=== PATIENT | female | born 2000 | race Hispanic/Latino ===

== ENCOUNTER 2020-01-20 12:15 | Emergency (ER) | payer OTHER, SELFPAY ==
[2020-01-20 12:51] VITALS: BP 138/82; PULSE 105; RESP 18; TEMP 36.4; O2SAT 100
--- NOTE | 2020-01-20 12:55 | ED.FEMALEGU ---
HPI - Female Genitourinary General Chief complaint: Urogenital-Female Stated complaint: abd pain/loss of appetite/vomiting/nausea Time Seen by Provider: 01/20/20 12:55 Source: patient Mode of arrival: ambulatory Limitations: no limitations History of Present Illness HPI Narrative: Brina Walden is a 19 yo female with lower abd pain that is more to R. Denies suprapubic pain but has pressure with urination. no fever, rates pain as high as 4/10, vomited x 1 this AM but thought due to hunger Related Data Allergies Allergy/AdvReac Type Severity Reaction Status Date / Time No Known Allergies Allergy Unverified 01/10/19 15:46 Review of Systems Review of Systems: Narrative: CONSTITUTIONAL: Denies fever, chills, sweats. EYES: Denies visual changes, redness, discharge. ENT: Denies rhinorrhea, congestion, sore throat, otalgia. CARDIOVASCULAR: Denies chest pain, palpitations, edema. RESPIRATORY: Denies dyspnea, wheezing, cough GASTROINTESTINAL: Denies abdominal pain, nausea, vomiting, diarrhea. GENITOURINARY: Denies dysuriabut has pressure with urination, no hematuria, abnormal discharge SKIN: Denies rash or itching. NEUROLOGIC: Denies numbness, or focal weakness. PSYCHIATRIC: Denies anxiety or depression. [facility] Family History Family History Other Heart disease Hypertension Social History Social History Smoking status: Never smoker Alcohol intake: never Comments At time of signature, I agree with nursing past medical, surgical, social and family history. There is no relevant family history pertinent to the presenting complaint. Exam Narrative: Exam Narrative: GENERAL: This is a well-nourished, well-developed patient, in no apparent distress- c/o nausea EYES:Sclera clear/white. Vision is grossly intact. EARS: External ears normal, Hearing grossly intact. NOSE: External nose normal with nasal discharge, nares without redness, has rhinorrhea. THROAT: Mucous membranes moist, NECK: Neck supple, non-tender CARDIOVASCULAR: Regular rate and rhythm without murmurs, gallops, or rubs. RESPIRATORY: Clear to auscultation. Breath sounds equal bilaterally. No wheezes, rales, or rhonchi. Occ dry cough GASTROINTESTINAL: Abdomen soft, mild tender RLQ, no rebound, no periumbilical tenderness, SKIN: warm, intact with no suspicious lesions or rash, good texture and turgor. NEURO: awake, alert, and oriented to person, place and time. There were no obvious focal neurologic abnormalities. Steady gait EXTREMITIES: Normal range of motion. BACK: Nontender without deformity Course Course Emergency Course: UA- trace leukocytes Vital Signs Vital signs: Vital Signs Temperature 97.6 F 01/20/20 12:51 Pulse Rate 105 H 01/20/20 12:51 Respiratory Rate 18 01/20/20 12:51 Blood Pressure 138/82 01/20/20 12:51 Pulse Oximetry 100 01/20/20 12:51 Temperature 97.6 F 01/20/20 12:51 Pulse Rate 105 H 01/20/20 12:51 Respiratory Rate 18 01/20/20 12:51 Blood Pressure 138/82 01/20/20 12:51 Pulse Oximetry 100 01/20/20 12:51 MDM - Female Genitourinary Differential Diagnosis Differential diagnosis: Likely urinary tract infection, cystitis, dysmenorrhea and other (ovarian cyst) Lab Data Labs: Urine Glucose Negative Reference Range: Negative Urine Bilirubin Negative Reference Range: Negative Urine Ketone Negative Reference Range: Negative Urine Specific [place] 1.020 Reference Range:1.001-1.035 Urine Blood Negative Reference Range: Negative * * Urine pH 7.0 Reference Range: 5.0-9.0 Urine Protein Negative Reference Range: Negative Urine Urobilinogen 0.2 Reference Range:
== END 2020-01-20 13:23 | disposition home or self-care (01) ==
PROVIDERS: Emergency Provider Nurse Practitioner
DX: R10.30 Lower abdominal pain, unspecified (principal); R11.0 Nausea
CPT/HCPCS: 81003; 87086; 87088; 99203; G0463

== ENCOUNTER 2021-04-17 14:20 | Emergency (ER) | payer OTHER, SELFPAY ==
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
[2021-04-17 14:32] VITALS: BP 126/75; PULSE 104; RESP 16; TEMP 37.1; O2SAT 100
== END 2021-04-17 15:49 | disposition home or self-care (01) ==
PROVIDERS: Emergency Provider Nurse Practitioner; PCP Registered Nurse
DX: R07.81 Pleurodynia (principal); F17.200 Nicotine dependence, unspecified, uncomplicated
CPT/HCPCS: 71100; 99213; G0463

== ENCOUNTER 2025-03-14 02:00 | Inpatient (IN) | payer OTHER, SELFPAY ==
[2025-03-14] VITALS (186 sets, daily range): BP systolic 70–155; BP diastolic 33–120; PULSE 67–149; RESP 13–20; TEMP 36.5–38.1; O2SAT 91–100; BMI 47.2
--- OUTSIDE RECORDS SUMMARY | 2025-03-14 02:31 | XMS_ITS | Clinical Summary ---
Author Organization [facility] Care Team Providers Care [facility] Name Role Phone Unavailable Primary Care Provider Unavailabl e Social History Tobacco Use Types Packs/Day Years Used Date Smoking Tobacco: Never Assessed Comments Unknown Sex and Gender Information Value Date Recorded Sex Assigned at Not on file Legal Sex Female 10:55 PM CDT Gender Identity Not on file Sexual Orientation Not on file Plan of Treatment Health Maintenance Due Date Last Done Comments Hepatitis C Virus (HCV) Screening 1999 Human Papillomavirus (HPV) Immunization (1 - 3-dose series) 2014 Pap Smear 2020 Influenza Immunization (#1) 2024 SARS-COV-2 Immunization ( season) 2024 03/07/2021, 02/07/2021 Respiratory Syncytial Virus (RSV) Immunization (Adult) (1 - 1-dose 75+ series) 2074 Hepatitis B Immunization Completed 000, 1999, 1999 DTaP/Tdap/Td Immunization Discontinued 2011, 02/15/2004, 12/03/2000, Additional history exists TdaP Immunization Completed 11/25/2011 Meningococcal Immunization (ACWY) Completed 09/25/2015, 11/25/2011 Pneumococcal Immunization Combined Aged Out No longer eligible based on patient's age to complete this topic Rotavirus Immunization Aged Out No lo nger eligible based on patient's age to complete this topic
--- OUTSIDE RECORDS SUMMARY | 2025-03-14 02:31 | XMS_ITS | Data Portability ---
Author Organization [facility] Address [address] [place] [address] Assessment Encounter Date Assessment Date Assessment LastModified by Organization Details LastModified Time 03/08/2025 03/08/2025 Patient is ___weeks . Discussed plan. [email or web address] Not available 03/08/2025 17:04:05 Plan of Treatment Reminders Order Date Submit Date Provider Last Modified By Organization Details Last Modified Time Details Appointments U/S OB GROWTH 2024 02:30P M ULTRASOUND Not available Not available Not available NST 2024 03:00P M NST SCHEDULE Not available Not available Not available OB ROUTINE 2024 03:30P M NICOLAS TatumM Not available Not available Not available U/S OB BPP 2024 02:30P M ULTRASOUND Not available Not available Not available NST 2024 03:00P M NST SCHEDULE Not available Not available Not available OB ROUTINE 2024 03:45P M Shantal Bonilla CNM Not available Not available Not available U/S OB BPP 2024 02:30P M ULTRASOUND Not available Not available Not available NST 2024 03:00P M NST SCHEDULE Not available Not available Not available OB ROUTINE 2024 03:30P M Shantal Bonilla CNM Not available Not available Not available Lab None recorde d. Referral None recorde d. Procedures None recorde d. Surgeries None recorde d. Imaging non-str ess test 2024 025 [address], [address], [place], [address], 03/09/2025 14:02:24 US, obstetr ic, biophys ical profile + non-str ess test 2024 [address], [address], [place], [address], 03/09/2025 18:29:56 non-str ess test 2024 [address], [address], [place], [address], 03/02/2025 12:06:15 US, [facility] ic, biophys ical profile + non-str ess test 2024 025 [address], [address], [place], [address], 03/01/2025 21:18:15 Medication Orders None recorde d. Patient TargetsNo targets recorded. Patient InstructionsNo instructions recorded. Reason for Referral None Reported. Results Created Date Observation Date Name Description Value Unit Range Abnormal Flag Note LastModifiedBy Organization Detail LastModifiedTime 03/02/2003/02/2025 CULTU RE: GROUP B STREP SCREE N, REFLE X SUSCE PTIBI LITY result report SEE RESULT S BELOW abnormal Test: Cultu re: Group B Strep , Refle x Susce ptibi lity ([facility] ) Speci men Sourc e: Vagin a/Rec humphrey Speci men Type: Vagin al/Re ctal Speci men Date: 2024 0820 Resul t Date: 2024 1429 Resul t Statu s: Final resul t Abnor mal: Yes Resul ting Lab: [facility] [address] [facility] [address] Tel: CULTU RE ----- ----- ----- --- Posit chanel for Strep tococ cus agala ctiae (Grou p B) (Abno rmal) Clind amyci n susce ptibl e, eryth romyc in resis tant. The clind amyci n induc tion test (D-t est) is negat chanel, there fore clind amyci n shoul d be clini jamil effec tive again st this isola te. Not Available [facility] (Lab) [address], [place], [address], 03/06/2025 15:33:10 02/16/20 25 02/15/2025 US, obste tric, follo w-up No observ ation record ed. [email or web address], [place], [address], 02/21/2025 06:59:54 02/16/20 25 02/15/2025 US, obste tric, follo w-up No observ ation record ed. [facility] [address], [place], [address], 02/15/2025 18:23:49 02/16/20 25 02/15/2025 US, obste tric, bioph ysica l profi le + non-s tress test No observ ation record ed. [facility] [address], [place], [address], 02/15/2025 18:23:58 02/16/20 25 02/15/2025 non-s tress test No observ ation record ed. [email or web address] [place] [address], [place], [address], 02/15/2025 21:23:02 02/16/20 25 02/15/2025 non-s tress test No observ ation record ed. [email or web address] [place] [address], [place], [address], 02/15/2025 21:26:21 02/23/20 25 02/22/2025 US, adri hope, bioph ysica l profi le + non-s tress test No observ ation record ed. [email or web address] [place] [address], [place], [address], 02/22/2025 17:25:35 02/23/20 25 02/22/2025 US, adri hope, follo w-up No observ ation record ed. [email or web address] [address], [place], [address], 02/24/2025 06:54:55 02/23/2002/22/2025 non-s tress test No observ ation record ed. [email or web address] [place] [address], [place], [address], 02/22/2025 20:10:20 02/23/20 25 02/22/2025 non-s tress test No observ ation record ed. [email or web address] [place] [address], [place], [address], 02/22/2025 22:05:22 03/01/20 25 03/01/2025 US, jad woods ysica l profi le + non-s tress test No observ ation record ed. [email or web address] [place] [address], [place], [address], 03/01/2025 18:15:10 03/01/20 25 03/01/2025 US, obste jayy, follo w-up No observ ation record ed. [email or web address] [address], [place], [address], 03/02/2025 14:48:25 03/01/20 25 03/01/2025 non-s tress test No observ ation record ed. [place] [address], [place], [address], 03/01/2025 20:36:02 03/01/20 25 03/01/2025 non-s tress test No observ ation record ed. [email or web address] [place] [address], [place], [address], 03/01/2025 20:37:36 03/08/20 25 03/09/2025 US, obste tric, bioph ysica l profi le + non-s tress test No observ ation record ed. [email or web address] [place] [address], [place], [address], 03/09/2025 11:30:02 03/08/20 25 03/08/2025 US, obste tric, bioph ysica l profi le + non-s tress test No observ ation record ed. [email or web address] [address], [place], [address], 03/09/2025 22:44:19 03/08/20 25 03/08/2025 non-s tress test No observ ation record ed. [email or web address] [place] [address], [place], [address], 03/08/2025 20:05:54 03/08/20 25 03/08/2025 non-s tress test No observ ation record ed. [email or web address] [place] [address], [place], [address], 03/08/2025 20:07:36 Result Notes None recorded. Problems Name Problem SNOMED Code Status Onset Date Resolution Date Notes Provider Name and Address Organization Details Recorded Time Syphilis test finding 779211656 Completed 201812/14/2020 Encounte r for STD screenin g;Record ed Elsewher e: No Locat ion: [facility] S ource: EHR Warranty Clerk kelvin: N Practi ce ID: 0001 Emil lable Time: 08:30:00 AM Satinder Adair MD [address], [place], [address], [facility] 1 11:33:31 Finding of pattern of menstrua l cycle 569155987 Completed 201812/14/2020 Irregula r interval between menstrua l bleeding ;Recorde d Elsewher e: No Locat ion: [facility] S ource: EHR Warranty Clerk kelvin: N Practi ce ID: 0001 Emil lable Time: 10:00:00 AM Satinder Adair MD [address], [place], [address], [facility] [address] 11:33:[address] Concept Completed 201912/14/2020 Encounte r for other contrace ptive manageme nt;Recor ded Elsewher e: No Locat ion: [facility] S ource: EHR Warranty Clerk kelvin: N Practi ce ID: 0001 Emil lable Time: 08:30:00 AM Satinder Adair MD [address], [place], [address], [facility] 1 11:33:37 Hirsutis m 320823260 Active 2018 Hirsutis m;Merleti ce ID: 0001 Not Available [facility] 0 15:11:12 Pregnanc y test negative 937730751 Completed 201812/14/2020 Encounte r for pregnanc y test, result negative ;Practic e ID: 0001 Satinder Adair MD [address], [place], [address], [facility] 1 11:33:34 Infectio n screenin g Completed 201812/14/2020 Encounte r for screenin g for oth infec/pa rastc diseases ;Recorde d Elsewher e: No Locat ion: Aleks logan [facility] S ource: EHR Warranty Clerk kelvin: N Practi ce ID: 0001 Emil lable Time: 01:45:47 PM Satinder Adair MD [address], [place], [address], [facility] 1 11:33:41 Educatio n Completed 201812/14/2020 Encounte r for other general counseli ng and advice on contrace ption;Re corded Elsewher e: No Locat ion: Alejandra ford [facility] S ource: EHR Warranty Clerk kelvin: N Practi ce ID: 0001 Emil lable Time: 08:45:00 AM Satinder Adair MD [address], [place], [address], [facility] 1 11:33:44 Pregnanc y 30406130 Active 2023 Jenn Aranda [facility] 4 12:14:32 Body mass index 40+ - severely obese 242493673 Active >40 antenata l testing weekly at [address]w[facility] 5 17:06:59 Body mass index 40+ - severely obese 484149935 Active >40 antenata l testing weekly at [facility] 5 17:06:59 Bacteria present 642975400 Active 2024 Liz Reyes [facility] 5 16:08:44 Problem Notes None recorded. Procedures Surgical History Date Name Laterality Status Provider Name and Address Organization Details Recorded Time 4 Date of Last Pap Smear completed Jenn Aranda [facility] 09/12/2024 12:11:20 3 Dilation and Curettage completed Lynn Bell [facility] 08/05/2024 14:19:20 Imaging Results None recorded. Procedure Notes None recorded. Medical Equipment None Reported. Allergies No known drug allergies Medications Name Sig Start Date Stop Date Status Note LastModified by Organization Details LastModified Time doxycycli ne hyclate 100 mg capsule 09/12 completed Not Available Not Available Not Available ibuprofen 800 mg tablet TAKE 1 TABLET BY MOUTH THREE TIMES DAILY NEEDED FOR PAIN 08/05 completed Not Available Not Available Not Available fluconazo le 150 mg tablet TAKE 1 TABLET BY MOUTH ONCE. MAY TAKE 2ND PILL 2 DAYS LATER IF SYMPTOMS PERSIST 08/05 completed Not Available Not Available Not Available fluconazo le 200 mg tablet take 1 tablet by oral route every other day x 3 doses 06/29 completed Not Available Not Available Not Available metronida zole 0.75 % (37.5 mg/5 gram) vaginal gel INSERT ONE APPLICAT ORFUL VAGINALL Y AT BEDTIME FOR 5 DAYS 04/29 completed Not Available Not Available Not Available ondansetr on HCl 4 mg tablet 06/29 completed Not Available Not Available Not Available prednison e 20 mg tablet TAKE 2 TABLETS BY MOUTH EVERY DAY FOR 5 DAYS 08/05 completed Not Available Not Available Not Available metronida zole 500 mg tablet TAKE 1 TABLET BY MOUTH TWICE A DAY FOR 7 DAYS 09/12 completed Not Available Not Available Not Available nystatin- triamcino lone 100,000 unit/gram -0.1 % topical ointment apply by topical route 2 times every day to the affected area(s) x 5 days prn 06/29 completed Not Available Not Available Not Available amoxicill in 875 mg tablet TAKE 1 TABLET BY MOUTH EVERY 12 HOURS FOR 10 DAYS 08/05 completed Not Available Not Available Not Available meclizine 25 mg tablet TAKE 1 TABLET ORAL ROUTE EVERY 8 HOURS NEEDED 02/15 completed Not Available Not Available Not Available baclofen 10 mg tablet TAKE 1 TABLET BY MOUTH THREE TIMES DAILY NEEDED 08/05 completed Not Available Not Available Not Available clotrimaz ole-betam ethasone 1 %-0.05 % topical cream APPLY TO THE AFFECTED AND SURROUND ING AREAS OF SKIN TOPICALL Y TWICE DAILY IN THE MORNING AND EVENING FOR 2 WEEKS 12/14 completed Not Available Not Available Not Available promethaz ine 25 mg tablet TAKE 1 TABLET BY MOUTH EVERY 4 HOURS 02/15 completed Not Available Not Available Not Available levofloxa torie 500 mg tablet Take 1 tablet every 24 hours by oral route for 7 days. 06/29 completed Not Available Not Available Not Available albuterol sulfate HFA 90 mcg/actua tion aerosol inhaler TAKE 1-2 (INHALAT ION) EVERY 4 HOURS NEEDED FOR WHEEZING 08/05 completed Not Available Not Available Not Available Vitamin D2 1,250 mcg (50,000 unit) capsule take 1 capsule by oral route every week 09/05 completed Prescrib rodo Prater e: No Locat ion: Alejandra ford [facility] odify By: christin rocha DateTime : 12/10/19 19 12:39:12 PM Not Available Not Available Not Available azithromy torie 500 mg tablet 09/12 completed Not Available Not Available Not Available active Not Available Not Avai lable Not Available EluRyng 0.12 mg-0.015 mg/24 hr vaginal ring insert 1 vaginal ring by vaginal route every month leave in place for 3 weeks, remove for 1 week 08/05 completed Not Available Not Available Not Available Vitals Date Recorded Body height Body mass index (BMI) Body weight Body height Body mass index (BMI) Body weight Systolic And Diastolic Systolic And Diastolic Provider Name and Address Organization Details Last Updated DateTime 5 160.02 cm 49.1 kg/m2 690113. 09 g 160.02 cm 49.1 kg/m2 581547. 09 g 117/81 mm[Hg] 117/81 mm[Hg] Liz Reyes [facility] 5 20:34:41 Date Recorded Body weight Body mass index (BMI) Body height Body height Body mass index (BMI) Body weight Systolic And Diastolic Systolic And Diastolic Provider Name and Address Organization Details Last Updated DateTime 5 233910. 58549 g 49.1 kg/m2 160.02 cm 160.02 cm 49.1 kg/m2 639559. 09 g 123/79 mm[Hg] 123/79 mm[Hg] Liz Reyes [facility] 20:04:42 Social History Question Answer Notes LastModified by Organizat ion Details LastModified Time Tobacco Smoking Status Never Smoker Kayy holland, [facility] 12/14/2020 11:20:18 If You Are , What Was Your Level Of Alcohol Consumption Prior To ? Occasional [email or web address] Information not available 03/01/2025 How Many Years Have You Consumed Alcohol? 6 [email or web address] Information not available 09/12/2024 Are You Blind Or Do You Have Difficulty Seeing? No Information n ot available 08/05/2024 What Is Your Level Of Caffeine Consumption? None Information not available 08/05/2024 How Much Tobacco Do You Chew? None Information not available 08/05/2024 In The 14 Days Before Symptom Onset, Have You Had Close Contact With A Laboratory-confirm ed COVID-19 While That Case Was Ill? No Information n ot available 08/05/2024 In The 14 Days Before Symptom Onset, Have You Had Close Contact With A Person Who Is Under Investigation For COVID-19 While That Person Was Ill? No Information not available 08/05/2024 Have You Been To An Area Known To Be High Risk For COVID-19? No Information not available 08/05/2024 Are You Deaf Or Do You Have Serious Difficulty Hearing? No Information not available 08/05/2024 What Type Of Diet Are You Following? REGULAR Information n ot available 08/05/2024 What Is The Highest Grade Or Level Of School You Have Completed Or The Highest Degree You Have Received? [id number] Information not available 08/05/2024 Are There Any Guns Present In Your Home? No Information not available 08/05/2024 Do You Use Protection During Sex? No Information not available 08/05/2024 Do You Use Your Seat Belt Or Car Seat Routinely? Yes Information not available 08/05/2024 Do You Have Smoke And Carbon Monoxide Detectors In Your Home? Yes Information not available 08/05/2024 How Much Tobacco Do You Smoke? No Information not available 08/05/2024 Do You Use Sunscreen Routinely? Yes Information not available 08/05/2024 Have You Used IV Drugs? No Information not available 08/05/2024 Do You Have Difficulty Walking Or Climbing Stairs? No [email or web address] Information not available 03/01/2025 Sex: Unknown Functional Status Question Answer Note LastModified by Organizat ion Details LastModified Time Do you use any illicit or recreational drugs? No Information not available 08/05/2024 What is your level of alcohol consumption? None Information not available 08/05/2024 Are you able to walk? YESWOREST Information not available 08/05/2024 Are you able to care for yourself? 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 No [email or web address] Information not available 03/01/2025 What is your exercise level? None Information not available 08/05/2024 Mental Status Question Answer Note LastModified by Organization D etails LastModified Time Do you feel stressed (tense, restless, nervous, or anxious, or unable to sleep at night)? [id number] [email or web address] Information not available 09/12/2024 Family History Relationship Description Onset Age of this Age Resolved Age Notes LastModified by Organization Details LastModified Time Mother Congenital heart disease [email or web address] Not available 2024 14:19:43 Mother Hypertensive disorder [email or web address] Not available 2019 10:03:20 Maternal Grandmother Congenital heart disease Not available 2024 14:19:43 Maternal Grandmother Hyperlipidem ia Not available 2024 14:19:43 Maternal Grandmother Diabetes mellitus [email or web address] Not available 2019 10:04:05 Father Congenital heart disease Not available 2024 14:19:43 Father Hyperlipidem ia [email or web address] Not available 2024 14:19:43 Maternal Grandfather Hyperlipidem ia [email or web address] Not available 2024 14:19:43 Maternal Aunt Disorder of thyroid gland [email or web address] Not available 2019 10:04:22 Medical History Condition Response Other Y Blood Transfusion N Dermatologic Disorders N Gestational Diabetes N Anxiety Disorder N Autoimmune disease N Arthritis N Polyps N Infertility N Acid Reflux (GERD) N Cancer N Varicosities N Stroke N Neurologic/Epilepsy N Fibromyalgia N Headaches N Kidney Disease N Heart Problems N Kidney or Bladder Problems N Eating Disorder N Art (IVF or FET) N Hepatitis/Liver Disease N No Past Medical History N Urinary Tract Infection N Asthma N Trauma/Violence N Thrombophilias N Allergies (Food, seasonal, environmental ) N Breast Cancer N Drug/Latex Allergies/Reactions N Lung Disease N Defects or Inherited Disease Y Breast Problem N Hematologic disorders N Anesthesia Complications N History of STI Y Deep Vein Thrombosis N Polycystic ovary syndrome N History of abnormal pap Y Endometriosis N High Cholesterol N Thyroid Problems N GI Problems N Anemia N Psychiatric Illness N Ovarian Cancer N Diabetes N Pulmonary (TB, Asthma) N Eczema N Abuse/Domestic Violence N Depression/ depression N Heart Disease N Pre-Eclampsia N Hypertension N Osteoporosis N Gynecological History Statement/Question Response Abnormal Pap Y Flow Moderate Date of Last Mammogram Date of LMP 05/27/2024 N Was last menstrual period normal Y STIs/STDs Yes HPV Vaccine Y Duration of Flow (days) 5 Current Control Method Are cycles usually normal N Date of Last Colonoscopy Frequency of Cycle (Q days) 6 Sexually Active? Y Menses Monthly N Date of DEXA bone scan Age of first menstrual cycle 9 Date of Last Pap Smear 08/05/2024 Sexual Problems? N LMP Definite N Obstetrics History GPAL:G 2 P 0 0 1 0 Type Value Spontaneous 1 Living 0 Total 2 Past Encounters Encounter ID Performer Location Encounter Start Date Encounter Closed Date Diagnosis/Indication Diagnosis SNOMED-CT Code Diagnosis ICD10 Code Diagnosis Note [id number] Satinder Adair MD [place] [place] [address] [address] 06/29/2020 10:18:34 06/29/2020 11:12:17 Vaginitis 53152003 N76.0 This patient is has signs and symptoms consistent with a yeast vulvovagin itis. We will treat with Lotrisone cream over the vulva and a Diflucan tablet. [id number] Satinder Adair MD [place] [place] [address] [place] [address] 12/14/2020 10:26:14 12/14/2020 12:44:28 Contraception care management 216450822 Z30.9 Gynecologi c examination 04004602 Z01.419 This patient is here for her annual exam. A thorough history was taken. A physical exam was performed. Age appropriat e routine health screening was ordered, performed, and discussed. Recommende d testing was ordered. She was asked to follow up in one year. She will be informed of any test results. Pap - today Additional precaution cruzito measures were taken to minimize potential exposure to the Covid-19 virus during this patient s visit, including available hand adjunct professor of english upon arrive, temperatur e check and being asked a series of screening questions. All staff wore face coverings during this encounter, as well as provided additional cleaning and sanitizing of all surfaces, including countertop s, pens, chairs, door handles, light switches, etc, prior to and following the patient s visit. [id number] Satinder Adair MD [place] [address],[place] [address] 04/18/2022 14:44:59 04/18/2022 16:47:32 Gynecologic examination 12645925 Z01.419 Annual gynecologi anali exam performed. Patient will come back in a year unless there are new symptoms. Suggest Calcium with Vitamin D if not eating in diet. Patient advised to get annual flu shot. Recommend yearly physicals and preform monthly breast exams. Genetic testing is available for patients with family history of cancer. Engage in safe sexual practices, use condoms. Encouraged to have daily exercise. Avoid tobacco and illicit drugs, moderation of alcohol. If BMI greater than 25 dietary consult advised. If you have any questions please call or email. Pap - today [id number] Cony Hogan MD [place] [place] [address],[place] [address] 04/29/2023 09:42:28 04/29/2023 10:32:34 Uncertain viability of 848821715 O36.80X9 Z3A.00 [id number] Satinder Adair MD [place] [address],[place] [address] 08/05/2024 12:13:20 08/05/2024 13:08:07 Uterine size for dates discrepancy 267759983 O26.849 Z3A.01 [id number] Satinder Adair MD [place] [address],[place] [address] 08/05/2024 13:50:07 08/05/2024 15:15:48 Nausea and vomiting 61980753 R11.2 Amenorrhea 10136815 N91. 2 this patient is a 24-year-ol d female who presents for amenorrhea . She is a positive test. Ultrasound revealed a 1st trimester gestation. Patient has no complaints . We talked about early care. Talked about genetic screening. We talked about her ultrasound results. We talked about the 12 week ultrasound that has genetic screening components . She was given recommenda tions on exercise, diet, over-the-c ounter medication s. We reviewed her obstetric history. We reviewed her medical history. We reviewed her social history. She will begin routine care at her next visit. 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 [id number] Satinder Adair MD [place] [address],[place] [address] 08/22/2024 11:40:44 08/22/2024 12:05:57 [id number] BELTRAN CISNEROS MD [place] [address],[place] [address] 08/26/2024 15:39:48 08/26/2024 16:15:46 Urinary symptoms 669601572 R39.9 [id number] BELTRAN CISNEROS MD [place] [address],[place] [address] 09/12/2024 11:41:31 09/12/2024 12:50:57 Routine care 144305436 Z34.91 screening 2437 75166 Z36.0 Genetic in vestigation procedure 02511608 Z31.430 [id number] Satinder Adair MD [place] [address],[place] [address] 09/12/2024 11:41:06 09/12/2024 12:29:25 screening 600445295 Z36.82 Z3A.11 [id number] Satinder Adair MD [place] [address],[place] [address] 09/23/2024 10:38:05 09/23/2024 15:07:30 Venereal disease screening 049831895 Z11.3 [id number] MD Grace BOJORQUEZ [address],[place] [address] 10/14/2024 11:21:57 10/14/2024 12:21:17 Routine care 404645576 Z34.91 [id number] Satinder Adair MD [place] [address],[place] [address] 11/09/2024 15:57:01 11/09/2024 17:24:00 screening for malformation 425409497 Z36.3 O99.210 Z3A.19 [id number] BELTRAN CISNEROS MD [place] [address],[place] [address] 11/09/2024 15:59:03 11/10/2024 09:45:56 Excessive growth affecting management of mother 30362753 O36.62X0 - 24 week GCT Gestation period, 19 weeks 15364276 Z3A.19 [id number] Satinder Adair MD [place] [address],[place] [address] 12/09/2024 11:30:53 12/09/2024 13:45:52 screening 992808699 Z36.2 O99.210 O43.122 Z3A.24 [id number] MD Grace BOJORQUEZ [address],[place] [address] 12/09/2024 11:31:36 12/09/2024 17:01:33 Excessive growth affecting management of mother 27870566 O36.62X0 - 28 week GCT Velamentou s insertion of umbilical cord 65150443 O43.122 - q4 week growth US Gestation period, 24 weeks 383579915 Z3A.24 [id number] MD Grace BOJORQUEZ [address] [address],[place] [address] 01/06/2025 15:19:55 01/06/2025 15:47:10 Routine care [id number] Z34.91 [id number] Satinder Adair MD [facility] [address],[place] [address] 01/17/2025 14:15:12 01/17/2025 15:11:24 Maternal obesity complicating , childbirth and the puerperium, antepartum [id number] 07 Z36.2 Z3A.29 [id number] BELTRAN CISNEROS MD [facility] [address],[place] [address] 01/17/2025 14:17:03 01/17/2025 16:14:14 Velamentous insertion of umbilical cord 68751868 O43.122 - q4 week growth US Gestation period, 29 weeks 62996984 Z3A.29 [id number] Satinder Adair MD [facility] [address],[place] [address] 01/31/2025 14:18:17 01/31/2025 15:01:50 Routine care 493786473 Z34.83 [id number] Satinder Adair MD [facility] [address],[place] [address] 1 02/15/2025 15:32:16 02/15/2025 16:32:11 Maternal obesity complicating , childbirth and the puerperium, antepartum 8879375404 07 O99.210 Z3A.33 [id number] Shantal Bonilla CNM [facility] [address],[place] [address] 02/15/2025 15:32:30 02/16/2025 09:41:14 Obesity 461760227 O99.213 [id number] Shantal Bonilla CNM [facility] [address],[place] [address] 02/15/2025 15:32:38 02/16/2025 09:43:51 Gestation period, 33 weeks 20429661 Z3A.33 [id number] Satinder Adair MD [facility] [address],[place] [address] 02/22/2025 15:30:47 02/22/2025 16:12:19 Maternal obesity complicating , childbirth and the puerperium, antepartum 2527999817 07 O99.210 Z3A.34 [id number] Shantal Bonilla [facility] [address],[place] [address] 02/22/2025 15:31:19 02/23/2025 11:02:15 Body mass index 40+ - severely obese 249705935 E66.01 [id number] Shantal Bonilla [facility] [address],[place] [address] 02/22/2025 15:31:34 02/22/2025 17:49:29 Gestation period, 34 weeks 45967309 Z3A.34 [id number] Satinder Adair MD [facility] [address],[place] [address] 03/01/2025 15:25:39 03/01/2025 16:02:49 Maternal obesity complicating , childbirth and the puerperium, antepartum 0169690309 07 O99.210 Z3A.35 [id number] Shantal Bonilla [facility] [address],[place] [address] 03/01/2025 15:29:06 03/02/2025 12:06:15 Obesity 405998108 O99.210 [id number] Shantal Bonilla [facility] [address],[place] [address] 03/01/2025 15:29:20 03/06/2025 01:06:13 Gestation period, 36 weeks 96783179 Z3A.36 [id number] Shantal Bonilla [facility] [address],[place] [address] 1 03/08/2025 15:16:54 03/09/2025 14:02:24 Obesity 263961624 O99.213 [id number] Satinder Adair MD [facility] [address],[place] [address] 03/08/2025 15:16:02 03/08/2025 16:22:02 Obesity 414822703 O99.210 Z3A.36 [id number] Shantal FordIlan Bonilla [facility] [address] [address] 03/08/2025 15:17:03 03/08/2025 17:42:27 Gestation period, 36 weeks 09250989 Z3A.36 Health Concerns Section Related Observation LastModified by Organization Detai ls LastModified Time None Recorded Concern Status LastModified by Organization Details LastModified Time None Recorded Advance Directives Directive None Recorded Payers Encounter Date Sequence Insurance Name Policy Number Policy Quiros Covered Member ID Quiros Member ID Guarantor Name 03/01/2025 1 [place] [id number] Jessica Walden [id number] Jessica Walden 03/01/2025 1 [place] [id number] Jessica Walden [id number] Jessica Walden 03/08/2025 1 [place] [id number] Jessica Walden [id number] Jessica Walden 03/08/2025 1 [place] [id number] Jessica Walden [id number] Jessica Walden 03/08/2025 1 [place] [id number] Jessica Walden [id number] Jessica Walden OBGyn Episode Ob Episode Information Episode Created Date Number of Fetuses Patient Bloodtype Patient rh Status Prepregnancy Weight lbs Domestic Partner Domestic Partner Phone Father Name [employer] Status 09/12/20 24 1 O Positive 262 OPEN Fetus Data First Name Last Name Admitted to NICU Weight (g) Sex Living Outcome Pediatric Complications Fetus ID Race Codes Race Delivery Type [id number] Problems Problem Notes Problem Name Start Date End Date Resolution Snomed Code Not e Body mass index 40+ - severely obese [id number] >40 testing weekly at 34wks Bacteria present 03/06/2025 [id number] Gilberto Calculation Initial Gilberto Date Initial Exam Date Initial Exam Provider Initial Ultrasound Date Last Menstrual Period Date Ultra Sound Weeks Gestation 03/30/2025 09/12/2024 08/22/2024 05/27/2024 9 Eighteen To Twenty Week Gilberto Update Ultra Sound Date Fundal Height At Umbil Quickening Date Ultra Sound Latest Weeks Gestation Final Gilberto Confirmed By Final Gilberto Confirmed Date Final Gilberto Date Ultra Sound Latest Days Gestation 0 [email or web address] 10/14/2024 03/30/20 25 0 Pre- Flowsheet Flowsheet Date 09/12/2024 Douglas Score Blood Edema Fundus Height Fundus Units Glucose Ketones Leukocytes Nitrite Labor Signs Protein Cervic Dilation Cervic Effacement Cervic Station Type Weight in lbs Pre/Post Dialysis Refused Weight 262.712668608288 BP Diastolic BP Location Tested BP Systolic BP Type 79 L arm 117 sitting Fetus Heart Rate Present A 164 Fetus Movement Comments Presents to establish prenat al care. Overall doing well, nausea improving. No cramping or bleeding. NT wnl, NB not visualized due to position. Discussed repeating if NIPT abnormal, will draw NIPT today with new OB labs. Previously seen ovarian cyst appears to have decreased in size, measuring 3x2cm today. Denies pain. Discussed torsion precautions. RTC 4 weeks for routine care. Flowsheet Date 09/23/2024 Douglas Score Blood Edema Fundus Height Fundus Units Glucose Ketones Leukocytes Nitrite Labor Signs Protein Cervic Dilation Cervic Effacement Cervic Station Type Weight in lbs Pre/Post Dialysis Refused 263.046047344512 BP Diastolic BP Location Tested BP Systolic BP Type 84 L arm 126 sitting Fetus Heart Rate Present Fetus Movement Comments Flowsheet Date 10/14/2024 Douglas Score Blood Edema Fundus Height Fundus Units Glucose Ketones Leukocytes Nitrite Labor Signs Protein Cervic Dilation Cervic Effacement Cervic Station neg none Type Weight in lbs Pre/Post Dialysis Refused 265.227876748469 BP Diastolic BP Location Tested BP Systolic BP Type 78 L arm 119 sitting Fetus Heart Rate Present A 150 Fetus Movement A Yes Comments Patient c/o of slight nausea , improved. No bleeding or cramping. Has started feeling movement. Discussed anatomy US for next visit. LR male NIPT! Other OB labs wnl. RTC 4 weeks. Flowsheet Date 11/09/2024 Douglas Score Blood Edema Fundus Height Fundus Units Glucose Ketones Leukocytes Nitrite Labor Signs Protein Cervic Dilation Cervic Effacement Cervic Station Type Weight in lbs Pre/Post Dialysis Refused BP Diastolic BP Location Tested BP Systolic BP Type Fetus Heart Rate Present Fetus Movement Comments Flowsheet Date 11/09/2024 Douglas Score Blood Edema Fundus Height Fundus Units Glucose Ketones Leukocytes Nitrite Labor Signs Protein Cervic Dilation Cervic Effacement Cervic Station neg none Type Weight in lbs Pre/Post Dialysis Refused 263.779738164920 BP Diastolic BP Location Tested BP Systolic BP Type 71 L arm 114 sitting Fetus Heart Rate Present A 150 Fetus Movement A Yes Comments Good movement. No cram ping or bleeding. Anatomy incomplete today, need heart views, plantar foot, bilateral fingers. EFW 95%. Will repeat in 4 weeks. Recommend 24 week GCT given suspected LGA fetus. RTC 4 weeks. Flowsheet Date 12/09/2024 Douglas Score Blood Edema Fundus Height Fundus Units Glucose Ketones Leukocytes Nitrite Labor Signs Protein Cervic Dilation Cervic Effacement Cervic Station Type Weight in lbs Pre/Post Dialysis Refused BP Diastolic BP Location Tested BP Systolic BP Type Fetus Heart Rate Present Fetus Movement Comments Flowsheet Date 12/09/2024 Douglas Score Blood Edema Fundus Height Fundus Units Glucose Ketones Leukocytes Nitrite Labor Signs Protein Cervic Dilation Cervic Effacement Cervic Station neg none Type Weight in lbs Pre/Post Dialysis Refused Weight 265.153526796244 BP Diastolic BP Location Tested BP Systolic BP Type 77 L arm 115 sitting Fetus Heart Rate Present A 153 Fetus Movement A Yes Comments Patient c/o Morteza Turpin gerardo guillory was in ER 2 weeks ago due to dizzy spells. Good movement. No bleeding. EFW 94%, anatomy now normal. Velamentous cord insertion discussed, will repeat growth q4 weeks. Discussed gCT and labs for next visit. RTC 4 weeks. Flowsheet Date 01/06/2025 Douglas Score Blood Edema Fundus Height Fundus Units Glucose Ketones Leukocytes Nitrite Labor Signs Protein Cervic Dilation Cervic Effacement Cervic Station neg trace Type Weight in lbs Pre/Post Dialysis Refused Weight 271.993720954717 BP Diastolic BP Location Tested BP Systolic BP Type 82 L arm 124 sitting Fetus Heart Rate Present A 140 Fetus Movement A Yes Comments Patient c/o Corona Turpin an d swelling in feet. Good movement. No cramping or bleeding. Repeat growth US next visit for velamentous cord insertion. GCT and labs today. Discussed tdap. RTC 2 weeks. Flowsheet Date 01/17/2025 Douglas Score Blood Edema Fundus Height Fundus Units Glucose Ketones Leukocytes Nitrite Labor Signs Protein Cervic Dilation Cervic Effacement Cervic Station Type Weight in lbs Pre/Post Dialysis Refused BP Diastolic BP Location Tested BP Systolic BP Type Fetus Heart Rate Present Fetus Movement Comments Flowsheet Date 01/17/2025 Douglas Score Blood Edema Fundus Height Fundus Units Glucose Ketones Leukocytes Nitrite Labor Signs Protein Cervic Dilation Cervic Effacement Cervic Station neg trace Type Weight in lbs Pre/Post Dialysis Refused 271.368070881850 BP Diastolic BP Location Tested BP Systolic BP Type 77 L arm 120 sitting Fetus Heart Rate Present A Present Fetus Movement A Yes Comments Good movement. No blee ding. Some BH contractions. GTT today. EFW 71%, JENNA wnl. Fingers normal. No anemia on 28 week labs. Repeat growth US in 4 weeks. RTC 2 weeks. Flowsheet Date 01/31/2025 Douglas Score Blood Edema Fundus Height Fundus Units Glucose Ketones Leukocytes Nitrite Labor Signs Protein Cervic Dilation Cervic Effacement Cervic Station Type Weight in lbs Pre/Post Dialysis Refused 272.053744755531 BP Diastolic BP Location Tested BP Systolic BP Type 84 L arm 126 sitting Fetus Heart Rate Present A 148 Present Fetus Movement A Yes Comments no complaints, no problems, routine care, no contractions, no vaginal bleeding, no loss of fluid, no cramping Flowsheet Date 02/15/2025 Douglas Score Blood Edema Fundus Height Fundus Units Glucose Ketones Leukocytes Nitrite Labor Signs Protein Cervic Dilation Cervic Effacement Cervic Station Type Weight in lbs Pre/Post Dialysis Refused BP Diastolic BP Location Tested BP Systolic BP Type Fetus Heart Rate Present Fetus Movement Comments Flowsheet Date 02/15/2025 Douglas Score Blood Edema Fundus Height Fundus Units Glucose Ketones Leukocytes Nitrite Labor Signs Protein Cervic Dilation Cervic Effacement Cervic Station Type Weight in lbs Pre/Post Dialysis Refused Weight 273.88027197280 BP Diastolic BP Location Tested BP Systolic BP Type 78 119 Fetus Heart Rate Present Fetus Movement Comments Flowsheet Date 02/15/2025 Douglas Score Blood Edema Fundus Height Fundus Units Glucose Ketones Leukocytes Nitrite Labor Signs Protein Cervic Dilation Cervic Effacement Cervic Station neg trace Type Weight in lbs Pre/Post Dialysis Refused Weight 273.47651541363 BP Diastolic BP Location Tested BP Systolic BP Type 78 119 Fetus Heart Rate Present Fetus Movement A Yes Comments Patient is having some wrist pain, pressure and swelling. discussed ice and wrist brace, efw 63% bpp 10/10 +FM, precautions and education, call for preadmit f/u one week Flowsheet Date 02/22/2025 Douglas Score Blood Edema Fundus Height Fundus Units Glucose Ketones Leukocytes Nitrite Labor Signs Protein Cervic Dilation Cervic Effacement Cervic Station Type Weight in lbs Pre/Post Dialysis Refused BP Diastolic BP Location Tested BP Systolic BP Type Fetus Heart Rate Present Fetus Movement Comments Flowsheet Date 02/22/2025 Douglas Score Blood Edema Fundus Height Fundus Units Glucose Ketones Leukocytes Nitrite Labor Signs Protein Cervic Dilation Cervic Effacement Cervic Station Type Weight in lbs Pre/Post Dialysis Refused Weight 276.868733509173 BP Diastolic BP Location Tested BP Systolic BP Type 81 118 Fetus Heart Rate Present Fetus Movement Comments Flowsheet Date 02/22/2025 Douglas Score Blood Edema Fundus Height Fundus Units Glucose Ketones Leukocytes Nitrite Labor Signs Protein Cervic Dilation Cervic Effacement Cervic Station neg none Type Weight in lbs Pre/Post Dialysis Refused 276.579799338205 BP Diastolic BP Location Tested BP Systolic BP Type 81 118 Fetus Heart Rate Present Fetus Movement Comments Patient is having some gini ess. bpp 8/8, doing well +FM discussed gbs, precautions and education f/u one week, vtx,has preadmit scheduled Flowsheet Date 03/01/2025 Douglas Score Blood Edema Fundus Height Fundus Units Glucose Ketones Leukocytes Nitrite Labor Signs Protein Cervic Dilation Cervic Effacement Cervic Station Type Weight in lbs Pre/Post Dialysis Refused BP Diastolic BP Location Tested BP Systolic BP Type Fetus Heart Rate Present Fetus Movement Comments Flowsheet Date 03/01/2025 Douglas Score Blood Edema Fundus Height Fundus Units Glucose Ketones Leukocytes Nitrite Labor Signs Protein Cervic Dilation Cervic Effacement Cervic Station Type Weight in lbs Pre/Post Dialysis Refused Weight 277.907603071634 BP Diastolic BP Location Tested BP Systolic BP Type 81 117 Fetus Heart Rate Present Fetus Movement Comments Flowsheet Date 03/01/2025 Douglas Score Blood Edema Fundus Height Fundus Units Glucose Ketones Leukocytes Nitrite Labor Signs Protein Cervic Dilation Cervic Effacement Cervic Station neg trace Type Weight in lbs Pre/Post Dialysis Refused Weight 277.777395830569 BP Diastolic BP Location Tested BP Systolic BP Type 81 117 Fetus Heart Rate Present Fetus Movement A Yes Comments Patient is having some press ure, contractions and swelling. GBS collected, bpp 8/ doing well, labor precautions Flowsheet Date 03/08/2025 Douglas Score Blood Edema Fundus Height Fundus Units Glucose Ketones Leukocytes Nitrite Labor Signs Protein Cervic Dilation Cervic Effacement Cervic Station Type Weight in lbs Pre/Post Dialysis Refused BP Diastolic BP Location Tested BP Systolic BP Type Fetus Heart Rate Present Fetus Movement Comments Flowsheet Date 03/08/2025 Douglas Score Blood Edema Fundus Height Fundus Units Glucose Ketones Leukocytes Nitrite Labor Signs Protein Cervic Dilation Cervic Effacement Cervic Station Type Weight in lbs Pre/Post Dialysis Refused Weight 277.028451467750 BP Diastolic BP Location Tested BP Systolic BP Type 79 123 Fetus Heart Rate Present Fetus Movement Comments Flowsheet Date 03/08/2025 Douglas Score Blood Edema Fundus Height Fundus Units Glucose Ketones Leukocytes Nitrite Labor Signs Protein Cervic Dilation Cervic Effacement Cervic Station neg trace 1cm 20% -3 Type Weight in lbs Pre/Post Dialysis Refused 277.941211836709 BP Diastolic BP Location Tested BP Systolic BP Type 79 123 Fetus Heart Rate Present Fetus Movement A Yes Comments Patient ios having some pain , contractions and swelling. bpp 10/10 doing well +FM labor precautions, preadmit done Menstrual History Last Menstrual Date Menses Monthly On Bcp Conception Prior Menses Frequency Hcg Plus Date Menarche Onset Age 0805/27/2024 true Delivery Information Delivery Date Delivery Type Labor Anesthesia Weeks Gestation Incision Type Labor Labor Length Hrs Delivered By Post Complications Tubal Sterilization Discharge Date Comments Discharge Information Feeding Method Contraceptive Method Maternal HG B and HCT Levels Ob Episode Information Episode Created Date Number of Fetuses Patient Bloodtype Patient rh Status Prepregnancy Weight lbs Domestic Partner Domestic Partner Phone Father Name [employer] Status 08/05/20 24 1 CLOSED Fetus Data First Name Last Name Admitted to NICU Weight (g) Sex Living Outcome Pediatric Complications Fetus ID Race Codes Race Delivery Type , Spontane ous [id number] Gilberto Calculation Initial Gilberto Date Initial Exam Date Initial Exam Provider Initial Ultrasound Date Last Menstrual Period Date Ultra Sound Weeks Gestation 0 Eighteen To Twenty Week Gilberto Update Ultra Sound Date Fundal Height At Umbil Quickening Date Ultra Sound Latest Weeks Gestation Final Gilberto Confirmed By Final Gilberto Confirmed Date Final Gilberto Date Ultra Sound Latest Days Gestation 0 0 Menstrual History Last Menstrual Date Menses Monthly On Bcp Conception Prior Menses Frequency Hcg Plus Date Menarche Onset Age Delivery Information Delivery Date Delivery Type Labor Anesthesia Weeks Gestation Incision Type Labor Labor Length Hrs Delivered By Post Complications Tubal Sterilization Discharge Date Comments 3 Discharge Information Feeding Method Contraceptive Method Maternal HG B and HCT Levels
--- OUTSIDE RECORDS SUMMARY | 2025-03-14 02:31 | XMS_ITS | CONTINUITY OF CARE DOCUMENT ---
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
--- NOTE | 2025-03-14 02:43 | LDADM ---
This patient, Jessica Walden, was admitted to Labor/Delivery/Recovery 107 on 03/14/25 at 02:00. Plans for labor, pain management and were discussed with patient. Patient/family oriented to hospital policies and general routines including ID bracelet, bed and alarms, visiting hours, pain management, procedures, bathroom and other care routines, personal items, smoking policy, room service/diet and guest tray routines, security routines, and visiting hours. Patient/Family are encouraged to report perceived risks to care and to ask questions if they do not understand what they are told or what they should do. See [facility] for further documentation.
[2025-03-14] MEDS: AMPICILLIN 2 GM/NS 100 ML 2 GM/100 ML BAG IVPB (02:59)
[2025-03-14] MEDS: LACTATED RINGERS 1,000 ML 125 ML IV CONT ×3 (02:59→16:10)
[2025-03-14 03:13] LABS: Basophils Percent Auto 0.3 % (0.2-1.2); Eosinophils Absolute Auto 0.1 K/mm3 (0-0.3); Eosinophils Percent Auto 1.3 % (0-4.4); Hematocrit 40.2 % (37.0-47.0); Hemoglobin 12.9 g/dL (12.0-15.0); Immature Granulocyte Absolute 0.06 K/mm3 (0.00-0.031); Immature Granulocyte Percent A 0.6 % (0-0.5); Lymphocytes Absolute Auto 2.42 K/mm3 (0.9-3.2); Mean Corpuscular HGB Conc 32.1 g/dl (32-36); Mean Corpuscular Hemoglobin 25.2 pg (26-34); Mean Corpuscular Volume 78.7 fl (80-100); Mean Platelet Volume 9.6 fl (7.4-10.4); Monocytes Absolute Auto 0.6 K/mm3 (0.1-0.6); Monocytes Percent Auto 6.3 % (2.6-8.5); Neutrophils Absolute Auto 6.8 K/mm3 (1.3-6.7); Neutrophils Percent Auto 67.5 % (45.5-73.1); Platelet Count Result 343 k/mm3 (150-375); Red Blood Count 5.11 M/mm3 (4.2-5.4); Red Cell Distribution Width 13.8 % (11.5-14.5); White Blood Count 10.1 K/mm3 (4.5-10.0)
[2025-03-14 03:41] LABS: HIV 1/2 Ab P24 Ag Result Negative (Negative)
[2025-03-14 04:00] LABS: Syphilis IgG/IgM Antibody Negative (Negative)
[2025-03-14] MEDS: OXYTOCIN 30 UNITS/NS 500 ML 30 UNITS/500 ML BAG IV CONT (04:50)
[2025-03-14] MEDS: AMPICILLIN 1 GM/NS 50 ML 1 GM/50 ML BAG IVPB ×2 (06:58→11:04)
[2025-03-14] MEDS: diphenhydrAMINE HCl INJ 50 MG/ML VIAL 25 MG IV PUSH (13:54)
[2025-03-14] MEDS: ACETAMINOPHEN 325 MG TABLET 650 MG PO ×2 (13:55→18:48)
--- NOTE | 2025-03-14 14:18 | P.HP_ITS ---
H&P: HPI History of Present Illness Date/Time: 03/14/25 14:18 Chief Complaint: Labor Narrative: 24-year-old primiparous female who presented to Labor and delivery with ruptured membranes and was augmented to start labor. After laboring for several hours she developed nonreassuring status and nonreassuring heart tones. We agreed to move forward with delivery. She understands the risks, b enefits, and alternatives. She has completed informed consent process and is ready to proceed. The patient understands the details of the procedure. The procedure has been explained in detail. She understands the risks. She understands that injuries may occur that result in hospitalization, more surgery, and severe illness. She understands risk of hemorrhage and infection. She denies any chest pain or shortness of breath. She denies any nausea, vomiting, fever, chills. Review of Systems Review of Systems: All systems reviewed & are unremarkable except as noted in HPI and below Constitutional: Constitutional: Denies chills, Denies fatigue, Denies fever(s) and Denies weakness Eyes: Eyes: Denies blurry vision, Denies change in vision, Denies loss of peripheral vision, Denies loss of vision, Denies other visual disturbances and Denies eye pain ENT: Denies vertigo, Denies dizziness, Denies hearing loss, Denies mouth pain, Denies nasal obstruction, Denies neck mass and Denies neck pain Cardiovascular: Cardiovascular: Denies chest pain, Denies diaphoresis, Denies syncope, Denies leg edema and Denies dyspnea Respiratory: Respiratory: Denies chest congestion, Denies cough, Denies hemoptysis, Denies dyspnea and Denies wheezing Gastrointestinal: Gastrointestinal: Denies abdominal pain, Denies constipation, Denies diarrhea, Denies nausea and Denies vomiting Genitourinary: Genitourinary: Denies hematuria, Denies change in libido, Denies nocturia, Denies genital lesions, Denies flank pain and Denies urinary urgency Musculoskeletal: Musculoskeletal: Denies abnormal gait, Denies back pain, Denies myalgias, Denies arthralgias, Denies joint swelling, Denies muscle weakness and Denies neck pain Integumentary/Breasts: Skin/Breast: Denies swelling, Denies breast pain, Denies breast mass, Denies dry skin, Denies nipple discharge, Denies unusual bruising and Denies jaundice Neurologic: Denies Neuro-related abnormal movements, Denies Abnormal speech present, Denies abnormal gait, Denies behavioral changes, Denies confusion, Denies vertigo, Denies dizziness, Denies syncope, Denies loss of vision, Denies memory loss, Denies convulsions and Denies weakness Psychiatric: Psychiatric: Denies abnormal sleep pattern, Denies behavioral changes, Denies change in libido, Denies confusion, Denies depression, Denies anhedonia and Denies memory loss Endocrine: Endocrine: Reports no additional endocrine complaints, Denies change in libido and Denies fatigue Hematologic/Lymphatic: Hematologic/Lymphatic: Reports no additional hematologic/lymphatic complaints Allergic/Immunologic: Allergic/Immunologic: Reports no additional allergic/immunologic complaints and Denies wheezing PMFSH Past Medical History Medical History (Updated 03/14/25 @ 14:20 by Satinder Adair MD) No acute medical problems Family History Family History Other Heart disease Hypertension Social History Social History (Updated 04/17/21 @ 15:17 by Caren Esquivel, [employer] APPRENTICE) Smoking status: Never smoker Alcohol intake: current Substance use: never Do You Feel Safe in your Home?: Yes Lack of Transportation: No Lack of Food: Never True Current Housing: I Have Housing Concerned About Future Housing: No Difficulty Paying Gas/Electric Bills: No Difficulty Paying for Meds: No Currently Unemployed: No Education: High School Diploma/GED Difficulty w/ Childcare or Family Care: No Spiritual care concerns: No Meds Home Medications and Allergies Home Medications ?Medication ?Instructions ?Recorded ?Confirmed ?Type vit no.95-ferrous 1 tablet PO DAILY 03/04/25 03/04/25 History fumarate 28 mg-folic acid 800 mcg tablet () Allergies Allergy/AdvReac Type Severity Reaction Status Date / Time No Known Allergies Allergy Unverified 03/04/25 15:26 Vital Signs Vital Signs - 24 hr 03/14/25 02:13 03/14/25 02:16 03/14/25 02:30 Temperature 98.4 F Pulse Rate 95 Blood Pressure 114/83 Pulse Oximetry 98 Oxygen Delivery 03/14/25 03:01 03/14/25 03:52 03/14/25 04:01 Temperature 98.3 F Pulse Rate 94 77 Blood Pressure 123/59 L 113/64 Pulse Oximetry Oxygen Delivery 03/14/25 04:53 03/14/25 05:01 03/14/25 05:16 Temperature Pulse Rate 81 78 76 Blood Pressure 119/53 L 114/66 118/68 Pulse Oximetry Oxygen Delivery 03/14/25 05:31 03/14/25 05:46 03/14/25 06:01 Temperature Pulse Rate 82 109 H 81 Blood Pressure 127/73 106/68 97/53 L Pulse Oximetry Oxygen Delivery 03/14/25 06:15 03/14/25 06:16 03/14/25 06:31 Temperature 97.7 F Pulse Rate 100 96 Blood Pressure 107/72 107/67 Pulse Oximetry Oxygen Delivery 03/14/25 06:37 03/14/25 06:46 03/14/25 07:01 Temperature Pulse Rate 90 94 Blood Pressure 103/46 L 111/67 Pulse Oximetry Oxygen Delivery Room Air 03/14/25 07:16 03/14/25 07:28 03/14/25 07:32 Temperature Pulse Rate 89 99 Blood Pressure 124/64 128/83 Pulse Oximetry 96 Oxygen Delivery 03/14/25 07:33 03/14/25 07:35 03/14/25 07:40 Temperature Pulse Rate Blood Pressure Pulse Oximetry 95 95 94 Oxygen Delivery 03/14/25 07:45 03/14/25 07:47 03/14/25 07:50 Temperature Pulse Rate 91 Blood Pressure 132/68 Pulse Oximetry 95 94 Oxygen Delivery 03/14/25 07:55 03/14/25 08:00 03/14/25 08:02 Temperature 98 F Pulse Rate 86 Blood Pressure 137/68 Pulse Oximetry 94 94 Oxygen Delivery 03/14/25 08:05 03/14/25 08:10 03/14/25 08:15 Temperature Pulse Rate Blood Pressure Pulse Oximetry 94 94 95 Oxygen Delivery 03/14/25 08:17 03/14/25 08:20 03/14/25 08:25 Temperature Pulse Rate 88 Blood Pressure 121/75 Pulse Oximetry 95 94 Oxygen Delivery 03/14/25 08:30 03/14/25 08:31 03/14/25 08:32 Temperature Pulse Rate 149 H Blood Pressure 125/97 H Pulse Oximetry 94 96 Oxygen Delivery 03/14/25 08:36 03/14/25 08:37 03/14/25 08:38 Temperature Pulse Rate 88 97 Blood Pressure 110/67 118/91 H Pulse Oximetry 97 Oxygen Delivery 03/14/25 08:40 03/14/25 08:42 03/14/25 08:43 Temperature Pulse Rate 102 H 97 Blood Pressure 129/85 147/87 H Pulse Oximetry 95 Oxygen Delivery 03/14/25 08:46 03/14/25 08:47 03/14/25 08:49 Temperature Pulse Rate 92 112 H Blood Pressure 143/83 H 138/86 Pulse Oximetry 97 Oxygen Delivery 03/14/25 08:52 03/14/25 08:54 03/14/25 08:55 Temperature Pulse Rate 114 H 122 H Blood Pressure 129/84 137/83 Pulse Oximetry 97 95 Oxygen Delivery 03/14/25 08:58 03/14/25 08:59 03/14/25 09:01 Temperature Pulse Rate 115 H 106 H Blood Pressure 138/82 122/60 Pulse Oximetry 95 Oxygen Delivery 03/14/25 09:04 03/14/25 09:07 03/14/25 09:09 Temperature Pulse Rate 117 H 107 H Blood Pressure 123/73 135/77 Pulse Oximetry 94 95 Oxygen Delivery 03/14/25 09:10 03/14/25 09:13 03/14/25 09:14 Temperature Pulse Rate 109 H 119 H Blood Pressure 126/74 129/80 Pulse Oximetry 94 Oxygen Delivery 03/14/25 09:16 03/14/25 09:19 03/14/25 09:22 Temperature Pulse Rate 105 H 111 H 116 H Blood Pressure 130/79 128/72 120/79 Pulse Oximetry 91 Oxygen Delivery 03/14/25 09:24 03/14/25 09:25 03/14/25 09:29 Temperature Pulse Rate 109 H 108 H Blood Pressure 121/79 125/72 Pulse Oximetry 95 98 Oxygen Delivery 03/14/25 09:31 03/14/25 09:34 03/14/25 09:39 Temperature Pulse Rate 100 Blood Pressure 128/76 Pulse Oximetry 98 97 Oxygen Delivery 03/14/25 09:44 03/14/25 09:46 03/14/25 09:49 Temperature Pulse Rate 91 Blood Pressure 124/72 Pulse Oximetry 97 98 Oxygen Delivery 03/14/25 09:54 03/14/25 09:59 03/14/25 10:00 Temperature 98.1 F Pulse Rate Blood Pressure Pulse Oximetry 97 98 Oxygen Delivery 03/14/25 10:01 03/14/25 10:04 03/14/25 10:09 Temperature Pulse Rate 87 Blood Pressure 132/70 Pulse Oximetry 99 97 Oxygen Delivery 03/14/25 10:14 03/14/25 10:16 03/14/25 10:19 Temperature Pulse Rate 83 Blood Pressure 127/94 H Pulse Oximetry 97 98 Oxygen Delivery 03/14/25 10:24 03/14/25 10:29 03/14/25 10:31 Temperature Pulse Rate 88 Blood Pressure 139/81 Pulse Oximetry 97 97 Oxygen Delivery 03/14/25 10:34 03/14/25 10:39 03/14/25 10:44 Temperature Pulse Rate Blood Pressure Pulse Oximetry 97 99 99 Oxygen Delivery 03/14/25 10:46 03/14/25 10:49 03/14/25 10:54 Temperature Pulse Rate 90 Blood Pressure 109/63 Pulse Oximetry 100 99 Oxygen Delivery 03/14/25 10:59 03/14/25 11:01 03/14/25 11:04 Temperature Pulse Rate 88 Blood Pressure 122/79 Pulse Oximetry 99 99 Oxygen Delivery 03/14/25 11:09 03/14/25 11:14 03/14/25 11:16 Temperature Pulse Rate 76 Blood Pressure 137/84 Pulse Oximetry 100 99 Oxygen Delivery 03/14/25 11:19 03/14/25 11:24 03/14/25 11:29 Temperature Pulse Rate Blood Pressure Pulse Oximetry 100 98 100 Oxygen Delivery 03/14/25 11:31 03/14/25 11:34 03/14/25 11:39 Temperature Pulse Rate 84 Blood Pressure 140/96 H Pulse Oximetry 100 100 Oxygen Delivery 03/14/25 11:44 03/14/25 11:46 03/14/25 11:49 Temperature Pulse Rate 77 Blood Pressure 146/96 H Pulse Oximetry 100 100 Oxygen Delivery 03/14/25 11:54 03/14/25 11:59 03/14/25 12:01 Temperature Pulse Rate 82 Blood Pressure 135/66 Pulse Oximetry 100 100 Oxygen Delivery 03/14/25 12:04 03/14/25 12:09 03/14/25 12:14 Temperature Pulse Rate Blood Pressure Pulse Oximetry 100 100 100 Oxygen Delivery 03/14/25 12:15 03/14/25 12:16 03/14/25 12:19 Temperature 98 F Pulse Rate Blood Pressure 153/120 H Pulse Oximetry 100 Oxygen Delivery 03/14/25 12:25 03/14/25 12:29 03/14/25 12:34 Temperature Pulse Rate 89 Blood Pressure Pulse Oximetry 100 100 Oxygen Delivery 03/14/25 12:39 03/14/25 12:44 03/14/25 12:45 Temperature Pulse Rate 98 Blood Pressure 102/52 L Pulse Oximetry 100 100 Oxygen Delivery 03/14/25 12:49 03/14/25 12:54 03/14/25 12:59 Temperature Pulse Rate Blood Pressure Pulse Oximetry 99 100 100 Oxygen Delivery 03/14/25 13:01 03/14/25 13:04 03/14/25 13:09 Temperature Pulse Rate 115 H Blood Pressure 108/61 Pulse Oximetry 100 98 Oxygen Delivery 03/14/25 13:14 03/14/25 13:16 03/14/25 13:19 Temperature Pulse Rate 114 H Blood Pressure 99/60 L Pulse Oximetry 98 98 Oxygen Delivery 03/14/25 13:24 03/14/25 13:29 03/14/25 13:31 Temperature Pulse Rate 115 H Blood Pressure 112/48 L Pulse Oximetry 98 100 Oxygen Delivery 03/14/25 13:34 03/14/25 13:39 03/14/25 13:44 Temperature Pulse Rate Blood Pressure Pulse Oximetry 98 99 98 Oxygen Delivery 03/14/25 13:45 03/14/25 13:46 03/14/25 13:49 Temperature 100.5 F H Pulse Rate 142 H Blood Pressure 117/40 L Pulse Oximetry 97 Oxygen Delivery 03/14/25 13:54 03/14/25 13:55 03/14/25 13:59 Temperature 100.5 F H Pulse Rate Blood Pressure Pulse Oximetry 97 98 Oxygen Delivery 03/14/25 14:02 03/14/25 14:04 03/14/25 14:09 Temperature Pulse Rate 99 Blood Pressure 134/68 Pulse Oximetry 98 100 Oxygen Delivery 03/14/25 14:14 03/14/25 14:16 Temperature Pulse Rate 125 H Blood Pressure 141/85 H Pulse Oximetry 100 Oxygen Delivery Exam Const: General: cooperative, healthy appearing, comfortable and no acute distress Orientation/consciousness: oriented to person, oriented to place and oriented to time HENMT: Head: normal to inspection Ears: external ears normal Face/Nose/Sinus: Normal external nose present and normal facial exam Face and sinus: normal facial exam Eyes: General: appearance normal, both eyes and all related structures Neck: Neck: normal visual inspection, trachea midline and supple Resp: Auscultation: clear to auscultation bilaterally, no crackles, no rales, no rhonchi and no wheezes Cardio: Rate: regular rate Rhythm: regular rhythm Heart sounds: no click, no murmurs and no rubs GI: GI Palp: No abdominal tenderness, No Soft to palpation, No Tenderness to palpation present (GI) and No Palpable mass present Auscultation: normal bowel sounds Skin: General skin exam: normal color and no rashes or lesions noted Neuro: General: oriented to person, oriented to place and oriented to time Extrem: General: normal to inspection, no joint enlargement, no clubbing, cyanosis or edema, no pedal edema and no calf tenderness Psych: Appearance: grossly normal Mental Status: mental status grossly normal Speech and movement: Normal speech and movement present H&P: Results Labs Labs: Short CBC 03/14/25 Range/Units 02:44 WBC 10.1 H (4.5-10.0) K/mm3 Hgb 12.9 (12.0-15.0) g/dL Hct 40.2 (37.0-47.0) % Plt Count 343 (150-375) k/mm3 Assessment and Plan Assessment and plan (1) Non-reassuring heart tones complicating , antepartum: Code(s): O36.8390 - Maternal care for abnormalities of the heart rate or rhythm, unspecified trimester, not applicable or unspecified Status: Acute Plan 24-year-old primiparous female who presented to Labor and delivery with ruptured membranes and was augmented to start labor. After laboring for several hours she developed nonreassuring status and nonreassuring heart tones. We agreed to move forward with delivery. She understands the risks, benefits, and alternatives. She has completed informed consent process and is ready to proceed.
--- NOTE | 2025-03-14 14:20 | WPDHPUPDATE1 ---
History and Physical Update Update Date/Time: 03/14/25 14:20 History and Physical has been reviewed, including an updated exam of the patient. There are NO changes in the patient's condition. Risks, benefits, and alternatives have been discussed and questions answered. Patient agrees to proceed with procedure.
[2025-03-14] MEDS: ONDANSETRON INJ 4 MG/2 ML VIAL IV PUSH (14:23)
[2025-03-14] MEDS: FAMOTIDINE 20 MG/2 ML VIAL IV PUSH (14:23)
--- NOTE | 2025-03-14 14:56 | S_PTH ---
PATIENT: Jessica Walden LOC: [facility] U#:[id number] AGE/SX: 24/F ROOM: 290 RE03/14/[address]: Satinder Adair MD : 2000 BED: 00 DIS: 03/16/2025 SPEC #: [id number] RECD: 03/15/25 07:08 STATUS: MATTHEW RERussell #: [id number] MARCOS: 03/14/25 14:[address]: Satinder Adair DEPT: [facility] Surgical RECD BY: Maddy Sullivan ENTERED: 03/15/25 07:08 SP TYPE: Surgical OTHR DR: Manan Leonard, RESEARCH HYDROLOGIST Tissues: A - Placenta Procedures: Hematoxylin and Eosin Stain Gross and Microscopic Level 5
--- NOTE | 2025-03-14 15:23 | W.PM.OBCSD ---
OB - Delivery Note Procedure Delivery date: 03/14/25 Pre-op diagnosis: Non-Reassuring Status Post-op Diagnosis: Same Delivery augmentation: Pitocin Delivery monitor: External FHT and External Uterine Procedure Performed: Primary Surgeon: Satinder Adair MD Anesthesia type: Epidural Description of Procedure/Findings: The patient was taken the operating room.? She was prepped and draped in dorsal supine position with a leftward tilt.? This was done after spinal anesthetic was applied.? A low-transverse skin incision was made and carried down till of the fascia with the knife.? The fascial incision was made with the knife.? The fascial incision was extended laterally with Hatfield scissors.? The fascia was tented upward superiorly and inferiorly the rectus muscles were dissected off bluntly.? The rectus muscles were the midline.? The preperitoneal fat and peritoneum were dissected open bluntly at the superior aspect of the rectus muscles.? The peritoneal incision was extended superior and inferior with good position of bladder.? The uterine incision was made with a scalpel down to the level of the amniotic cavity.? The amniotic cavity was entered bluntly.? The was delivered.? The cord was clamped and cut and the infant was handed off to waiting pediatric staff.? Cord bloods were obtained.? The placenta was removed manually.? The uterus was exteriorized.? The uterus was cleared of all clots, debris and membranes.? The uterus was closed in 0 Vicryl running lock fashion.? An imbricating over a was placed along the incision line as well.? The uterus was returned to the abdomen.? The gutters were cleared of all clots and debris.? The fascia was closed with 0 Vicryl running fashion.? The subcutaneous tissue was irrigated pinpoint bleeders were cauterized.? The skin was closed with subcuticular absorbable mee.? The skin incision line was covered with glue.? The patient tolerated the procedure well.? She has taken recovery room in stable condition.? Sponge lap and needle counts were correct x2.? Specimen: Yes Estimated Blood Loss: 360 Pathology: Yes Complications: No immediate complications Condition: Stable Disposition: Floor
--- NOTE | 2025-03-14 16:05 | PC.NURSE ---
Called Jonnathan Willingham CRNA regarding pt BP. Orders received for 500ml bolus of LR and 100mcg Phenylephrine.
[2025-03-14] MEDS: OXYTOCIN 30 UNITS/NS 500 ML 30 UNITS/500 ML BAG 125 UNITS IV CONT (16:11)
[2025-03-14] MEDS: PHENYLEPHRINE 1,000 MCG/10 ML SYRINGE 100 MCG IV PUSH (16:25)
[2025-03-14] MEDS: fentaNYL CITRATE INJ (*CRX) 100 MCG/2 ML VIAL 50 MCG IV PUSH (17:06)
[2025-03-14] MEDS: KETOROLAC 15 MG/ML VIAL (*BKC) IV PUSH (18:48)
[2025-03-14] MEDS: DEXTROSE 5%/0.45% SOD CHL 1,000 ML 125 ML IV CONT (20:15)
[2025-03-15] VITALS: BP 147/89; PULSE 99; RESP 18; TEMP 37; O2SAT 99
[2025-03-15] MEDS: KETOROLAC 15 MG/ML VIAL (*BKC) IV PUSH ×3 (00:45→12:40)
[2025-03-15] MEDS: ACETAMINOPHEN 325 MG TABLET 650 MG PO ×3 (00:45→12:40)
[2025-03-15] MEDS: HYDROcodone/acetaminophen (*CRX) 5-325 MG TABLET 1 TAB PO ×3 (04:26→23:36)
[2025-03-15 05:33] LABS: Basophils Percent Auto 0.2 % (0.2-1.2); Eosinophils Percent Auto 0.4 % (0-4.4); Hematocrit 33.6 % (37.0-47.0); Hemoglobin 10.8 g/dL (12.0-15.0); Immature Granulocyte Absolute 0.05 K/mm3 (0.00-0.031); Immature Granulocyte Percent A 0.6 % (0-0.5); Lymphocytes Absolute Auto 1.64 K/mm3 (0.9-3.2); Lymphocytes Percent Auto 18.4 % (18.3-44.2); Mean Corpuscular HGB Conc 32.1 g/dl (32-36); Mean Corpuscular Hemoglobin 25.7 pg (26-34); Mean Corpuscular Volume 79.8 fl (80-100); Mean Platelet Volume 9.4 fl (7.4-10.4); Monocytes Absolute Auto 0.7 K/mm3 (0.1-0.6); Monocytes Percent Auto 7.7 % (2.6-8.5); Neutrophils Absolute Auto 6.5 K/mm3 (1.3-6.7); Neutrophils Percent Auto 72.7 % (45.5-73.1); Platelet Count Result 261 k/mm3 (150-375); Red Blood Count 4.21 M/mm3 (4.2-5.4); Red Cell Distribution Width 13.9 % (11.5-14.5); White Blood Count 8.9 K/mm3 (4.5-10.0)
--- NOTE | 2025-03-15 07:08 | P.PNOB_ITS ---
OB - PN: Subj Subjective Date/time seen: 03/15/25 07:08 Interval history: pp day 1 c/s for non reassuring heart tones OB - PN: Obj Data Labs 03/15/25 04:13 Labs: Laboratory Results - last 24 hr 03/15/25 04:13 WBC 8.9 RBC 4.21 Hgb 10.8 L Hct 33.6 L MCV 79.8 L MCH 25.7 L MCHC 32.1 RDW 13.9 Plt Count 261 MPV 9.4 Immature Gran % (Auto) 0.6 H Neut % (Auto) 72.7 Lymph % (Auto) 18.4 [place] % (Auto) 7.7 Eos % (Auto) 0.4 Baso % (Auto) 0.2 Lymph # (Auto) 1.64 [place] # (Auto) 0.7 H Eos # (Auto) 0.0 Baso # (Auto) 0.0 Abs Immat Gran (auto) 0.05 H Absolute Neuts (auto) 6.5 Absolute Nucleated RBC 0.000 Nucleated RBC % 0.0 OB - PN A/P Plan day: 1 Plan: routine care Time Spent With Patient Time: Total time spent is greater than 50% in coordination of care (as documented) at patient's floor/unit and/or counseling patient: Review of Systems 2 Review of Systems: All systems reviewed & are unremarkable except as noted in HPI and below Exam 2 Const: General: cooperative, healthy appearing and comfortable Chest: Chest palpation & inspection: normal inspection of the chest Resp: Effort & Inspection: normal respiratory effort GI: Other: incision CDI
[2025-03-15 07:20] VITALS: BP 112/64; PULSE 99; RESP 18; TEMP 37.5; O2SAT 96
--- NOTE | 2025-03-15 07:52 | WPDANLDPN2 ---
Anes-Prog Note L&D Date/Time: 03/15/25 07:52 Neuro status: Neuro function grossly intact. Cardiovascular status: normal Respiratory status: normal Airway patency: baseline Mental status: baseline Vital Signs: Last Vital Signs Temp 37.0 C 03/15/25 00:00 Pulse 99 03/15/25 00:00 Resp 18 03/15/25 00:00 BP 147/89 H 03/15/25 00:00 Pulse Ox 99 03/15/25 00:00 O2 Del Method Room Air 03/14/25 20:00 Pain score (VAS): 2 I/O: Intake & Output 03/14/25 03/14/25 03/15/25 15:59 23:59 07:59 Intake Total 1000 Output Total 926 172 3304 Balance 569 -[phone] Patient feedback: Patient satisfied with anesthetic care.
--- NOTE | 2025-03-15 07:53 | WPDANLDNPN2 ---
Anes-Prog Note L&D-Neuraxial Date/Time: 03/15/25 07:53 Patient feedback: Patient satisfied with post-operative pain management.
[2025-03-15] MEDS: MULTIVIT/MIN/PREN/FOL AC/IRON TABLET 1 TAB PO (08:37)
[2025-03-15] MEDS: SIMETHICONE 80 MG TAB.CHEW PO ×3 (08:37→17:58)
[2025-03-15] MEDS: DOCUSATE SODIUM 100 MG CAPSULE PO ×2 (08:37→17:58)
[2025-03-15 11:50] VITALS: BP 109/69; PULSE 92; RESP 16; TEMP 36.9; O2SAT 98
[2025-03-15] MEDS: LIDOCAINE 5% PATCH 1 PATCH TRANSDERM (12:40)
--- NOTE | 2025-03-15 17:50 | PC.NURSE ---
Mother has personal breast pump (momcozy) and request education and assembly with this RN. Instructions given on cleaning, care, usage, that there should be no pain, pumping schedule for milk production, collection, and storage of human milk. Patient was assessed for correct placement, flange size (21mm), to pump for comfort and nipple stretching/stimulation for adequate milk production every 3 hours (8 times in 24 hours) 1-2 times at night. Parents are encouraged to record the pumping schedule on the feeding sheet.?Mother voiced understanding of the education shared along with mom/baby guide and the pump measurement, flange fit handout for additional resource information. Reported to the Primary RN.
[2025-03-15] MEDS: ACETAMINOPHEN 325 MG TABLET 650 MG (19:42)
[2025-03-15] MEDS: IBUPROFEN 600 MG TABLET PO (19:42)
[2025-03-15 20:55] VITALS: BP 121/70; PULSE 103; RESP 16; TEMP 36.8; O2SAT 97
[2025-03-16] MEDS: IBUPROFEN 600 MG TABLET PO ×2 (02:14→08:46)
[2025-03-16] MEDS: ACETAMINOPHEN 325 MG TABLET 650 MG PO ×2 (02:15→08:46)
[2025-03-16] MEDS: HYDROcodone/acetaminophen (*CRX) 10-325 MG TABLET 1 TAB PO (06:40)
[2025-03-16 07:35] VITALS: BP 112/71; PULSE 64; RESP 18; TEMP 36.8; O2SAT 98
--- NOTE | 2025-03-16 07:58 | PC.NURSE ---
[id number] Consulted with mother concerning needs and she shared that she really has not put baby to breast but may when she gets home, she would like to pump and bottle feed, CLC will put in the combo feeding plan. Advised mother that if baby does not go to breast she needs to use her breast pump in order to protect her milk supply, if only pumping then she would pump 8 times a day, with 1-2 of those pumps at night. Mother is feeding appropriately for growth of and understands stimulating infant to eat if needed. has had appropriate feedings in the last 24 hours meets the outcomes for weight, output, blood sugar and jaundice at this time. Reinforced understanding of milk production, transition of milk, signs of adequate intake, transition of stool, prevention/relief of engorgement, plugged ducts, mastitis, responsive watching for feeding cues, the different methods of stimulating to breastfeed 1-3 hours after the start of the last feeding, community resources, and when to call a provider using the resource of the feeding sheet along with the mom and baby guide. Mother asked about alcohol consumption, per the Pocket Guide for (page 89), CLC read to mother, The [place] CDC states that the safest option is to avoid alcohol, but notes that there is no harm in consuming up to 1 standard alcoholic drink per day, especially when not nursing the baby again for at least 2 hours, mother understands. Mother voiced understanding of the information shared, is confident to continue effectively her at home, when to call for assistance, denies any additional assistance or education at this time. Reported to the Primary RN. [id number]
--- NOTE | 2025-03-16 08:22 | P.PNOB_ITS ---
OB - PN: Subj Subjective Date/time seen: 03/16/25 08:22 Interval history: pp day 1 c/s for non reassuring heart tones Patient comments: no complaints, pain well controlled, incisional pain, tolerating diet and flatus present OB - PN: Obj Data Labs 03/15/25 04:13 OB - PN A/P Plan day: 2 Plan: routine care Comments: POD#2 LTCS - no problems, Time Spent With Patient Time: Total time spent is greater than 50% in coordination of care (as documented) at patient's floor/unit and/or counseling patient: Exam 2 Const: General: comfortable, no acute distress and alert Resp: Effort & Inspection: normal respiratory effort Auscultation: no crackles, no rales and no rhonchi Cardio: Rate: regular rate Heart sounds: no click, no murmurs and no rubs GI: Inspection: non-distended Auscultation: normal bowel sounds Other: Incision - CDI Extrem: General: normal to inspection, no pedal edema and no calf tenderness
--- NOTE | 2025-03-16 08:23 | PM.OBDSVD ---
DS: Admitting Diagnosis Discharge Date 03/16/25 Admitting Diagnosis term DS: Discharge Diagnosis Discharge Diagnosis (1) delivery delivered: Code(s): O82 - Encounter for delivery without indication Status: Acute OB - DS: Summary OB Procedures : None OB Procedures Intrapartum: OB Procedures: : None Peripartum Data Procedures: Procedures Operation Date: 03/14/25 14:45 Actual Procedure Side Surgeon p Section Not Applicable Satinder Adair MD Time Spent with Patient Time attestation: Total time spent providing and/or coordinating discharge services: DS: Data Data Completed and Pending Pending studies at discharge: Pending at discharge 03/14/25 14:56 Surgical [PTH] Routine Discharge Plan Discharge Discharging Clinician: Satinder Adair Patient Disposition: Home Activity: pelvic rest Diet: regular Patient Instructions: Antibiotic Form Patient Language: [place]guill[place] Stand Alone Forms: General Discharge Information Follow-up/Referrals: Satinder Adair MD [Physician] - Discharge Medications: New hydrocodone-acetaminophen 5-325 mg tablet 1 - 2 tablet PO Q6H PRN (Reason: pain) Qty: 25 0RF Continued PNV cmb#95-ferrous fumarate-FA [] 28 mg iron- 800 mcg tablet 1 tablet PO DAILY Date of admission: 03/14/25 02:00 Primary Care Provider: EsequielManan Admitting Provider: Satinder Adair Attending physician on admission: Satinder Adair Condition: Stable
[2025-03-16] MEDS: SIMETHICONE 80 MG TAB.CHEW PO ×2 (08:46→12:11)
[2025-03-16] MEDS: DOCUSATE SODIUM 100 MG CAPSULE PO (08:46)
[2025-03-16] MEDS: MULTIVIT/MIN/PREN/FOL AC/IRON TABLET 1 TAB PO (08:46)
--- NOTE | 2025-03-16 09:48 | PC.NURSE ---
WIC form completed and mother signed, form faxed to [facility] in [place] #[phone]. Original form placed on mother's chart.
--- NOTE | 2025-03-16 12:55 | PC.NURSE ---
Patient viewed the discharge video Mother & Baby Care, The First Two Weeks. Patient was given the opportunity and encouraged to ask questions. Patient verbalized understanding of information shared and has been given the mother/baby guide for home reference.
[2025-03-17 09:28] VITALS: BP 113/66; PULSE 100; RESP 20; TEMP 36.7; O2SAT 100
== END 2025-03-16 14:05 | disposition home or self-care (01) | DRG 788 ==
LOC: ANHLDR 02:30 → ANHOB2 17:51
PROVIDERS: Admitting Provider Obstetrics & Gynecology; PCP Registered Nurse; Visit Provider Obstetrics & Gynecology
PROC: 10D00Z1 Extraction of Products of Conception, Low, Open Approach (ICD-10-PCS; CPT 59514; principal; 2025-03-14 14:45)
DX: O76 Abnormality in fetal heart rate and rhythm complicating labor and delivery (principal); O99.824 Streptococcus B carrier state complicating childbirth; O69.81X0 Labor and delivery complicated by cord around neck, without compression, not applicable or unspecified; Z3A.37 37 weeks gestation of pregnancy; Z37.0 Single live birth
CPT/HCPCS: 36415; 85025; 86593; 86703; 86850; 86900; 86901; 88307; A9270; G0432; J0290; J1200; J1885; J2274; J2371; J2405; J2590; J2795; J3010; J7120